=== PATIENT | male | born 1980 | race African-American/Black ===

== ENCOUNTER 2020-11-17 14:25 | Emergency (ER) | payer OTHER ==
[~2020-11-17] VITALS: Ht 193 cm; Wt 113.4 kg
== END 2020-11-17 15:07 | disposition home or self-care (01) ==
LOC: EDBD 14:25 → ER 14:25
DX: R22.1 Localized swelling, mass and lump, neck (principal); R63.3 Feeding difficulties
CPT/HCPCS: 99282

== ENCOUNTER 2020-11-26 10:47 | Observation (INO) | payer OTHER ==
[~2020-11-26] VITALS: Ht 205.7 cm; Wt 124.7 kg
[2020-11-26] MEDS ORDERED: DEXA1L PO (18:03)
[2020-11-26] MEDS ORDERED: LISI5 PO (18:04)
[2020-11-26] MEDS ORDERED: ACET325 PO (18:04)
[2020-11-26] MEDS ORDERED: LORA2L PO (18:05)
[2020-11-26] MEDS ORDERED: ONDA4ODT MM (18:05)
[2020-11-26] MEDS ORDERED: HALOPERIDOL2 MG/1 M1 SL (18:05)
[2020-11-26] MEDS ORDERED: IPRAT-ALBUT 0.5-3 ML INH (18:06)
[2020-11-26] MEDS ORDERED: SENN187 PO (18:06)
[2020-11-26] MEDS ORDERED: FENTANYL1 EA12 TOP (18:07)
[2020-11-26] MEDS ORDERED: MORP20L PO (18:07)
--- NOTE | 2020-11-26 19:01 | NUR ---
Spiritual care note: Mr. Milton (who prefers to be called Maxime Gayle) requested some poetry. I pulled up some Aparna Pompa from the web and brought these to him. He was often tearful as I read to him. He is soft-spoken and slow in speech, apparently from a recent CVA. He understands he is nearing end-of-life and states he's "at peace." He was charming and complimentary of staff. I offered gentle career development counselor and prayer. I will remain available.
--- NOTE | 2020-11-27 09:48 | NUR ---
Late entry Called to meet with pt regarding hospice care. Pt tranfered here form the [facility] for evaluation of decline in ability to eat, swallow and walk. Pt denies headaches or ringing in ears. Pt states he has been able to swallow well for about two weeks and fears eating. He dnies appetite he states he is very sensitive to light. Speech is slow and halting and difficult. He is mildly short of breath. He dinies nausea. States he has fallen at the [facility] and is loosing his ability to ambulte. He relays increasing weight loss. pt closthes are soiled and he smells of urine. Pt has belonging bags with medications and documents. Pt realyed his hospiec storye and his hold in [facility] and his issues with differnet names. He is not wanting any more treatment just hospice care. I reviewed document from [facility] and contacted [facility]. They advised they will speak with their director. Invoved care mangers and [facility] consult with Gerald Munoz for complex care for an end stage patient. Pt to remain ER hold til identiy and hospice plan in place for plan of care. Advied pt will advocate but cannot promise resolve of issues. Encouraged pt to accept dialgnostic if needed for hospice confrimation. Reenforced that would not mean forcing treatment on pt. Chaplian in to visit with pt regarding end of life care. Will update care manger and ethic team.
--- NOTE | 2020-11-27 16:20 | NUR ---
Prayer and emotional support provided. Pt is tearful and appreciative. POLST completed. He wishes to be DNR, no heroic measures.
== END 2020-11-27 15:50 | disposition home or self-care (01) ==
LOC: ER 10:47 → ERHOLD 10:48
PROVIDERS: ADMIT Internal Medicine
DX: C90.00 Multiple myeloma not having achieved remission (principal); R22.1 Localized swelling, mass and lump, neck; I69.359 Hemiplegia and hemiparesis following cerebral infarction affecting unspecified side; F44.4 Conversion disorder with motor symptom or deficit; Z51.5 Encounter for palliative care; Z66 Do not resuscitate
CPT/HCPCS: 99285; G0378

== ENCOUNTER 2021-01-21 13:43 | Emergency (ER) | payer SELFPAY ==
[~2021-01-21] VITALS: Ht 193 cm; Wt 99.8 kg
[~2021-01-21 13:43] MED LIST: ACET325 PO; DEXA1L PO; FENTANYL1 EA12 TOP; HALOPERIDOL2 MG/1 M1 SL; IPRAT-ALBUT 0.5-3 ML INH; LISI5 PO; LORA2L PO; MORP20L PO; ONDA4ODT MM; SENN187 PO
== END 2021-01-21 14:00 | disposition left against medical advice (07) ==
LOC: ER 13:43
DX: Z53.21 Procedure and treatment not carried out due to patient leaving prior to being seen by health care provider (principal)

== ENCOUNTER 2021-12-24 01:54 | Emergency (ER) | payer SELFPAY ==
[~2021-12-24] VITALS: Ht 188 cm; Wt 81.7 kg
[2021-12-24 03:49] LABS: Source, Urine Straight Cath
[2021-12-24 03:52] LABS: Bilirubin, Urine Neg (Neg); Blood, Urine 2+ (Neg); Glucose Qualitative, Urine Neg (Neg); Ketones, Urine Neg (Neg); Leukocyte Esterase, Urine Neg (Neg); Nitrite, Urine Neg (Neg); Protein, Urine 1+ (Neg); Specific Gravity, Urine 1.025 (1.003-1.022); Urobilinogen, Urine NORM (Normal)
[2021-12-24 04:10] LABS: U Amphetamine Screen Not Detected; U Barbituate Screen Not Detected; U Benzodiazapine Screen Not Detected; U Cocaine Screen Not Detected; U Methadone Screen Not Detected; U Methamphetamine Screen Not Detected
[2021-12-24 04:11] LABS: U Buprenorphine Screen Not Detected; U Cannabinoids Screen Not Detected; U Opiates Screen Not Detected; U Oxycodone Screen Not Detected; U Phencyclidine Screen Not Detected; U Propoxyphene Screen Not Detected
[2021-12-24 04:27] LABS: Appearance, Urine Cloudy (Clear); Color, Urine Yellow (P-Yellow)
[2021-12-24 04:49] LABS: Amorphous Heavy (0-Heavy); Bacteria Not Seen /hpf; Mucus Mod (0-Heavy); Squamous Epithelial Cells Not Seen /hpf (Few); White Blood Cells, Urine Not Seen /hpf (0-5)
== END 2021-12-24 08:05 | disposition home or self-care (01) ==
LOC: ER 01:54
PROVIDERS: Student in an Organized Health Care Education/Training Program
DX: R55 Syncope and collapse (principal); W05.0XXA Fall from non-moving wheelchair, initial encounter
CPT/HCPCS: 51701; 81001; 82947; 99283-25